=== PATIENT | female | born 1985 | race Caucasian/White ===

== ENCOUNTER → 2020-03-27 16:14 | Outpatient (BNVA) | payer MEDICARE, MEDICAID, SELFPAY | PROVIDERS: Family Provider Nurse Practitioner; PCP Nurse Practitioner Family; Visit Provider Nurse Practitioner Family | DX: R53.83 Other fatigue (principal); E55.9 Vitamin D deficiency, unspecified; Z79.899 Other long term (current) drug therapy; K04.7 Periapical abscess without sinus; D17.1 Benign lipomatous neoplasm of skin and subcutaneous tissue of trunk; R22.2 Localized swelling, mass and lump, trunk; Z13.6 Encounter for screening for cardiovascular disorders | CPT/HCPCS: 80053; 80061; 81003; 82306; 83036; 83721; 84443; 85025 ==

== ENCOUNTER 2020-04-20 13:33 | Outpatient (CLI) | payer MEDICARE, MEDICAID, SELFPAY ==
--- NOTE | 2020-04-20 13:30 | US_ITS ---
WS: [id number] ULTRASOUND SOFT TISSUES abdominal wall. HISTORY: D17.1 - Benign lipomatous neoplasm of skin and subcutaneous tissue of trunk COMPARISON: None available. TECHNIQUE: 2-D and color Doppler imaging is submitted. Ultrasound directed to the palpable abnormality just above the umbilicus. There is a hypoechoic mass which is probably omentum herniating through a defect in the abdominal wall. There is also small loop of peristalsing bowel projecting through the hernia also. The omental herniation measures 6.0 x 5.5 x 2.2 cm. There is no incarceration. US/US soft tissue/extremity [id number] IMPRESSION: Supraumbilical abdominal wall hernia containing omentum and a loop of nonincarc erated bowel.
== END 2020-04-20 13:34 | disposition home or self-care (01) ==
LOC: RAD 13:36
PROVIDERS: PCP Nurse Practitioner Family; Visit Provider Nurse Practitioner Family
DX: D17.1 Benign lipomatous neoplasm of skin and subcutaneous tissue of trunk (principal); K43.9 Ventral hernia without obstruction or gangrene
CPT/HCPCS: 76882

== ENCOUNTER → 2020-05-03 11:49 | Outpatient (BNVA) | payer MEDICARE, MEDICAID, SELFPAY | PROVIDERS: PCP Nurse Practitioner Family; Visit Provider Surgery | DX: Z20.822 Contact with and (suspected) exposure to COVID-19 (principal) | CPT/HCPCS: 87635 ==

== ENCOUNTER 2020-05-10 08:15 | Day surgery (SDC) | payer MEDICARE, MEDICAID, SELFPAY ==
[2020-05-09 16:14] VITALS: BMI 34.4
[2020-05-10] VITALS (10 sets, daily range): BP systolic 128–147; BP diastolic 92–107; PULSE 68–89; RESP 17–18; TEMP 36.2–36.6; O2SAT 91–98
--- NOTE | 2020-05-10 09:00 | ANES.PREANE2 ---
Pre-Anesthetic Assessment Pre-Anesthetic Assessment: Height/Weight: Height 1.7 m Weight 99.79 kg Preop Diagnosis: incarcerated umbilical hernia Proposed Procedure: Operation Date: 05/10/20 09:20 Proposed Procedures p Umbilical Hernia Repair 96060 K42.9(Not Applicable) - Lawrence Aaron MD Was Beta Carol Ann taken within 24 hours: N/A Social: Social History: No alcohol and No tobacco Exam: Pre-Anes Outpt Exam: alert, oriented x 3, clear to auscultation bilaterally and regular rate & rhythm Airway: Submandibular: WNL Cervical ROM: WNL MP: 2 Additional comments: Poor dentition, multiple missing and chipped Metabolic: Metabolic: Morbid obesity Anesthetic Plan: ASA status: 2 Risk of > 500 ml blood loss (7ml/kg in children): No PFSH Anesthesia PFSH: Medical History (Updated 04/24/20 @ 09:58 by Lawrence Aaron MD) Dental abscess Umbilical hernia Vitamin D deficiency Social History (Updated 04/24/20 @ 09:43 by Rashida Ortega) Smoking and tobacco status: never smoked Second hand smoke exposure: Yes Alcohol intake: never Desire information about alcohol rehabilitation?: No Counseling given: No Desire information about substance/drug rehabilitation?: No Counseling given: No Adopted: No Caregiver/support person: No Lives independently: Yes Household members: significant other Number of children: 0 Female Reproductive History: Date of last menstrual period: 05/05/20 Data Anesthesia Cardiac Studies: No Data to Display
[2020-05-10 09:16] LABS: OR HCG Qualitative Urine Negative (Negative)
[2020-05-10] MEDS: sodium chloride 0.9% 1,000 ML 30 ML IV (09:28)
--- NOTE | 2020-05-10 09:46 | W.PM.OPSUD ---
Surgery/Procedure H&P Update DATE OF PROCEDURE: May 10, 2020 DATE H&P PERFORMED: 04/24/20 H&P UPDATE INFORMATION: I have reviewed H&P completed within last 30 days, I have examined patient prior to procedure and No changes to prior documentation PREOP DIAGNOSIS: incarcerated umbilical hernia PLANNED PROCEDURE: Operation Date: 05/10/20 09:20 Proposed Procedures p Laparoscopic Umbilical Hernia Repair(Not Applicable) - Lawrence Aaron MD
--- NOTE | 2020-05-10 11:17 | PM.OP ---
Operative Report Date of procedure: May 10, 2020 Pre-op Diagnosis: incarcerated umbilical hernia Post-op Findings: Incarcerated umbilical hernia containing omentum Procedure Done: Repair of incarcerated ventral hernia with proceed 15 x 10 cm mesh Pathology: none sent Surgeon: Lawrence Aaron Anesthesia: General Condition: stable Disposition: PACU Procedure: The patient was taken to the Operating Room and was intubated under general anesthesia after the antibiotic had been administered. The abdomen was prepped and draped in a sterile manner. Using a 15 blade, a 2-cm incision was made in the left upper quadrant in the anterior axillary line and pneumoperitoneum was created using Verres needle. A 10 mm Kirk port was placed and 15 mm of pneumoperitoneum was created after a 10 mm 30? scope had been introduced. A 5 mm port was at the level of the umbilicus under direct visualization. Using a combination of electrocautery and scissors the peritoneum in the midline was taken down and the omental fat within the hernial sac was reduced. The dissection was carried superiorly along the midline by taking down the falciform ligament in order to create a space for placement of the mesh. A spinal needle was introduced through the abdominal wall and the edges of the hernial defect were marked and measured 3x 5 cm. 15 x 10 cm Proceed mesh was selected and 4 separate 2-0 [place] sutures were placed at the 4 corners of the mesh. A 5 mm camera was introduced and the mesh was introduced through the 10 mm port. Grannie needle was passed through the stab incisions and used to grasp the free ends of the [place] sutures which were used to pull the mesh up against the abdominal wall; 5 mm SecurStraps were placed 1 cm apart along the edge of the mesh to hold it against the abdominal wall. At the end of this, it was noted that the mesh was well positioned over the hernial defect. 20 cc of saline mixed with 20 cc of Exparel mixed with 20 0.5% Marcaine was infiltrated for a TAP block. All ports were removed under direct visualization and there was no bleeding noted from the port sites. The external oblique aponeurosis was approximated at this port site using figure of eight 0 Vicryl suture. The subcutaneous tissue was approximated using 3-0 Vicryl sutures. The skin at all 3 port sites was closed using subcuticular 4-0 Monocryl suture. The stab incisions and the 3 port sites were covered with Dermabond. 10cc of 0.5% Marcaine was infiltrated around the port sites. Abdominal binder was placed at the end of the procedure.
--- NOTE | 2020-05-10 11:41 | SUR.PHASEI ---
PT ON RA TRIAL, ABD BINDER ON WITH ASSIST OF OR NURSE, ABD SOFT WITH 5 SITES D/I
--- NOTE | 2020-05-10 12:21 | ANE.PACU2 ---
Inpatient post-anesthesia follow up: Airway intact: Yes Vital signs: Temperature 97.1 F Pulse Rate 73 Respiratory Rate 18 Blood Pressure 147/106 Pulse Oximetry 91 Oxygen Delivery Me thod Room Air Oxygen Flow Rate 8 Fraction of Inspir ed Oxygen Nausea and vomiting: No Pain level: 2 Mental status: Baseline
[2020-05-10] MEDS: ondansetron 2 mg/ML SDV 2 mL 4 MG IVP (12:25)
[2020-05-10] MEDS: HYDROcodone-acetaminophen 5-325 mg Tablet 1 TAB PO (13:14)
== END 2020-05-10 13:35 | disposition home or self-care (01) ==
PROVIDERS: Anesthesiology; PCP Nurse Practitioner Family; Visit Provider Surgery
PROC: 0WQF4ZZ Repair Abdominal Wall, Percutaneous Endoscopic Approach (ICD-10-PCS; CPT 49561; principal; 2020-05-10 09:20)
DX: K42.0 Umbilical hernia with obstruction, without gangrene (principal); E66.01 Morbid (severe) obesity due to excess calories; Z68.34 Body mass index [BMI] 34.0-34.9, adult
CPT/HCPCS: 49561; 12345; 84703; C9290; J0690; J1100; J2405; J2704; J2710; J3010; J3490; J7030

== ENCOUNTER → 2020-06-22 12:17 | Outpatient (BNVA) | payer MEDICARE, MEDICAID, SELFPAY | PROVIDERS: PCP Nurse Practitioner Family; Visit Provider Nurse Practitioner Family | DX: E11.9 Type 2 diabetes mellitus without complications (principal); Z79.899 Other long term (current) drug therapy; K21.9 Gastro-esophageal reflux disease without esophagitis; R42 Dizziness and giddiness | CPT/HCPCS: 36416; 80053; 81003; 82962; 83036; 85025 ==

== ENCOUNTER 2020-07-06 06:00 | Outpatient (RCR) | payer MEDICARE, MEDICAID, SELFPAY | END 2020-07-12 23:59 | disposition home or self-care (01) | LOC: WPT 06:00 | PROVIDERS: PCP Nurse Practitioner Family; Referring Provider Nurse Practitioner Family; Visit Provider Nurse Practitioner Family | DX: R42 Dizziness and giddiness (principal) | CPT/HCPCS: 97110; 97163 ==

== ENCOUNTER → 2020-09-18 11:36 | Outpatient (BNVA) | payer MEDICARE, MEDICAID, SELFPAY | PROVIDERS: PCP Nurse Practitioner Family; Visit Provider Nurse Practitioner Family | DX: E11.9 Type 2 diabetes mellitus without complications (principal); K04.7 Periapical abscess without sinus; K21.9 Gastro-esophageal reflux disease without esophagitis; Z01.419 Encounter for gynecological examination (general) (routine) without abnormal findings | CPT/HCPCS: 83036; 87070; 87106; 87205; 88175 ==

== ENCOUNTER → 2020-11-01 15:32 | Outpatient (BNVA) | payer MEDICARE, MEDICAID, SELFPAY | PROVIDERS: PCP Nurse Practitioner Family; Visit Provider Nurse Practitioner Family | DX: E11.9 Type 2 diabetes mellitus without complications (principal); Z20.822 Contact with and (suspected) exposure to COVID-19; K04.7 Periapical abscess without sinus | CPT/HCPCS: 36416; 82962; 87635 ==

== ENCOUNTER → 2021-02-25 19:58 | Outpatient (BNVA) | payer MEDICARE, MEDICAID, SELFPAY | PROVIDERS: PCP Nurse Practitioner Family; Visit Provider Nurse Practitioner Family | DX: N92.6 Irregular menstruation, unspecified (principal); Z32.02 Encounter for pregnancy test, result negative | CPT/HCPCS: 81025 ==

== ENCOUNTER → 2021-03-26 13:08 | Outpatient (BNVA) | payer MEDICARE, MEDICAID, SELFPAY | PROVIDERS: PCP Nurse Practitioner Family; Visit Provider Nurse Practitioner Family | DX: E11.9 Type 2 diabetes mellitus without complications (principal); E78.2 Mixed hyperlipidemia; R53.83 Other fatigue; E55.9 Vitamin D deficiency, unspecified | CPT/HCPCS: 80053; 80061; 81003; 82306; 83036; 84443; 85025 ==

== ENCOUNTER → 2021-06-27 10:15 | Outpatient (BNVA) | payer MEDICARE, MEDICAID, SELFPAY | PROVIDERS: PCP Nurse Practitioner Family; Visit Provider Family Medicine | DX: H15.003 Unspecified scleritis, bilateral (principal); H15.103 Unspecified episcleritis, bilateral; E11.9 Type 2 diabetes mellitus without complications | CPT/HCPCS: 80053; 83516; 85025; 85651; 86038; 86140; 86235; 86431; 87806 ==

== ENCOUNTER → 2022-05-01 10:47 | Outpatient (BNVA) | payer MEDICARE, MEDICAID, SELFPAY | PROVIDERS: PCP Nurse Practitioner Family; Visit Provider Nurse Practitioner Family | DX: E11.9 Type 2 diabetes mellitus without complications (principal) | CPT/HCPCS: 80053; 80061; 83036; 84443; 85025 ==

== ENCOUNTER → 2022-05-31 11:43 | Outpatient (BNVA) | payer MEDICARE, MEDICAID, SELFPAY | PROVIDERS: PCP Nurse Practitioner Family; Visit Provider Nurse Practitioner Family | DX: R30.0 Dysuria (principal); E11.9 Type 2 diabetes mellitus without complications | CPT/HCPCS: 81000 ==

== ENCOUNTER → 2022-06-11 16:28 | Outpatient (BNVA) | payer MEDICARE, MEDICAID, SELFPAY | PROVIDERS: PCP Nurse Practitioner Family; Visit Provider Nurse Practitioner Family | DX: N39.0 Urinary tract infection, site not specified (principal); K64.9 Unspecified hemorrhoids; E11.9 Type 2 diabetes mellitus without complications | CPT/HCPCS: 81000 ==

== ENCOUNTER → 2022-08-15 09:36 | Outpatient (BNVA) | payer MEDICARE, MEDICAID, SELFPAY | PROVIDERS: PCP Nurse Practitioner Family; Visit Provider Nurse Practitioner Family | DX: E11.9 Type 2 diabetes mellitus without complications (principal); E55.9 Vitamin D deficiency, unspecified; K21.9 Gastro-esophageal reflux disease without esophagitis; I10 Essential (primary) hypertension; E78.2 Mixed hyperlipidemia; K64.9 Unspecified hemorrhoids; K62.5 Hemorrhage of anus and rectum; G47.9 Sleep disorder, unspecified | CPT/HCPCS: 80053; 80061; 82306; 83036; 84443; 85025 ==

== ENCOUNTER → 2022-11-07 09:27 | Outpatient (BNVA) | payer MEDICARE, MEDICAID, SELFPAY | PROVIDERS: PCP Nurse Practitioner Family; Visit Provider Nurse Practitioner Family | DX: E11.9 Type 2 diabetes mellitus without complications (principal); K21.9 Gastro-esophageal reflux disease without esophagitis; I10 Essential (primary) hypertension; E78.2 Mixed hyperlipidemia; K62.5 Hemorrhage of anus and rectum; G47.9 Sleep disorder, unspecified; E55.9 Vitamin D deficiency, unspecified | CPT/HCPCS: 80053; 80061; 83036; 84443; 85025 ==

== ENCOUNTER → 2023-04-09 10:15 | Outpatient (BNVA) | payer MEDICARE, MEDICAID, SELFPAY | PROVIDERS: PCP Nurse Practitioner Family; Visit Provider Nurse Practitioner Family | DX: K21.9 Gastro-esophageal reflux disease without esophagitis (principal); E11.9 Type 2 diabetes mellitus without complications; I10 Essential (primary) hypertension; E78.2 Mixed hyperlipidemia; G47.9 Sleep disorder, unspecified; E55.9 Vitamin D deficiency, unspecified | CPT/HCPCS: 80053; 80061; 83036; 84443; 85025 ==

== ENCOUNTER → 2023-06-17 08:37 | Outpatient (BNVA) | payer MEDICARE, MEDICAID, SELFPAY | PROVIDERS: PCP Nurse Practitioner Family; Visit Provider Nurse Practitioner Family | DX: E11.9 Type 2 diabetes mellitus without complications (principal) | CPT/HCPCS: 80053; 80061; 83036; 84443; 85025 ==

== ENCOUNTER → 2024-02-05 12:21 | Outpatient (BNVA) | payer MEDICARE, MEDICAID, SELFPAY | PROVIDERS: PCP Nurse Practitioner Family; Visit Provider Nurse Practitioner Family | DX: Z12.4 Encounter for screening for malignant neoplasm of cervix (principal); E11.69 Type 2 diabetes mellitus with other specified complication; E11.9 Type 2 diabetes mellitus without complications; Z79.4 Long term (current) use of insulin | CPT/HCPCS: 80053; 80061; 83036; 84443; 85025; 87624 ==

== ENCOUNTER → 2024-04-29 15:22 | Outpatient (BNVA) | payer MEDICARE, MEDICAID, SELFPAY | PROVIDERS: PCP Nurse Practitioner Family; Visit Provider Clinical Nurse Specialist Adult Health | DX: Z79.4 Long term (current) use of insulin (principal); I10 Essential (primary) hypertension; E11.69 Type 2 diabetes mellitus with other specified complication; E78.2 Mixed hyperlipidemia; E55.9 Vitamin D deficiency, unspecified | CPT/HCPCS: 80053; 80061; 82306; 83036; 83540; 84443; 85025 ==

== ENCOUNTER → 2024-08-05 14:35 | Outpatient (BNVA) | payer MEDICARE, MEDICAID, SELFPAY | PROVIDERS: PCP Clinical Nurse Specialist Adult Health; Visit Provider Clinical Nurse Specialist Adult Health | DX: E11.9 Type 2 diabetes mellitus without complications (principal); E11.69 Type 2 diabetes mellitus with other specified complication; Z79.4 Long term (current) use of insulin; H69.93 Unspecified Eustachian tube disorder, bilateral; E55.9 Vitamin D deficiency, unspecified; D50.8 Other iron deficiency anemias | CPT/HCPCS: 80053; 82306; 82607; 83036; 83540; 85025 ==

== ENCOUNTER → 2025-01-27 14:40 | Outpatient (BNVA) | payer MEDICARE, BC, MEDICAID, SELFPAY | PROVIDERS: PCP Clinical Nurse Specialist Adult Health; Visit Provider Clinical Nurse Specialist Adult Health | DX: E11.69 Type 2 diabetes mellitus with other specified complication (principal); I10 Essential (primary) hypertension; R35.0 Frequency of micturition | CPT/HCPCS: 80053; 80061; 81000; 82607; 83036; 85025 ==